=== PATIENT | female | born 1950 | race Caucasian/White ===

== ENCOUNTER → 2017-03-05 | Outpatient (CLI) | payer MEDICARE ==
[~2017-03-05] MED LIST: CATHETER FLUSH 10 ML SYR IV PRN; CETI10CA PO; DULO30CA3 PO; GABA800T2 PO; MECL-124 PO; MELA10CA PO; NF-ESOM40C PO; PRAS10TA6 PO; REGADENOSON 0.4 MG/5 ML SYR (LEXISCAN) IV ONE; SIMV40TA4 PO; ZOLP10TA PO
[2017-03-05 09:10] VITALS: BP 135/86
--- NOTE | 2017-03-07 14:30 | STRESS TEST ---
DATE OF SERVICE: 03/05/2017 RESTING AND POST REGADENOSON TECHNETIUM 99M TETROFOSMIN SPECT CT IMAGING ORDERING PHYSICIAN: Dr. Meade. PRIMARY PHYSICIAN: Dr. Mendez. CLINICAL DIAGNOSIS: Coronary artery disease. Baseline images were carried out after injection of 10.98 mCi technetium-99m Tetrofosmin. This was followed by 0.4 mg regadenoson and 29.5 mCi technetium-99m Tetrofosmin for stress imaging. The electrocardiogram showed sinus rhythm at baseline and it did not change significantly with the regadenoson infusion. The patient tolerated the procedure well. Review of images at rest and following stress does not indicate any significant perfusion defects consistent with significant myocardial ischemia or infarction. Gated images show normal global left ventricular systolic function with normal regional wall motion. Left ventricular ejection fraction is calculated to be 86%. Left ventricular end diastolic volume of 13 mL. TID is absent (0.87). CONCLUSIONS: 1. No evidence of any significant myocardial ischemia or infarction on this study. 2. Hyperdynamic left ventricular systolic function with an ejection fraction of 86%. 3. No regional wall motion abnormalities seen on this study. Job ID: [id number] DocumentID: [id number] Dictated Date: 03/07/2017 11:50:46 [employer] Date: 03/07/2017 12:36:42 Dictated By: NATALIA MEADE MD, MA, FACP, FACC,
== END ==
LOC: CARD 06:55
PROVIDERS: ATTEND Internal Medicine Cardiovascular Disease
DX: I25.10 Atherosclerotic heart disease of native coronary artery without angina pectoris (principal); J43.8 Other emphysema; I65.23 Occlusion and stenosis of bilateral carotid arteries; Z72.0 Tobacco use
CPT/HCPCS: 78452; 93017

== ENCOUNTER → 2017-08-26 | Outpatient (CLI) | payer MEDICARE, OTHER ==
[~2017-08-26] MED LIST changes: -CATHETER FLUSH 10 ML SYR IV PRN; -REGADENOSON 0.4 MG/5 ML SYR (LEXISCAN) IV ONE
== END ==
LOC: CARD 11:44
PROVIDERS: ATTEND Nurse Practitioner Family
DX: R00.2 Palpitations (principal)
CPT/HCPCS: 93225; 93226

== ENCOUNTER → 2019-11-12 | Outpatient (CLI) | payer OTHER, MEDICARE | LOC: LABNPT 13:18 | PROVIDERS: ATTEND Internal Medicine | DX: Z01.89 Encounter for other specified special examinations (principal) | CPT/HCPCS: 84145 ==

== ENCOUNTER 2021-12-18 05:42 | Outpatient (CLI) | payer MEDICARE, OTHER ==
[~2021-12-18] VITALS: Ht 152.4 cm; Wt 67.7 kg
[2021-12-19] MEDS ORDERED: TICA90TA PO (10:38)
[2021-12-19] MEDS ORDERED: ACHD5005 PO (10:38)
[2021-12-19] MEDS ORDERED: CETI10TA17 PO (12:28)
[2021-12-19] MEDS ORDERED: FAMO20TA3 PO (12:28)
[2021-12-19] MEDS ORDERED: MELA1TAB20 PO (12:28)
[2021-12-19] MEDS ORDERED: ALBU2.5V4 INH (12:28)
[2021-12-19] MEDS ORDERED: SIMV20TA26 PO (12:28)
== END 2021-12-19 12:34 | disposition home or self-care (01) ==
LOC: PREOP 05:42
PROVIDERS: ATTEND Specialist
DX: Z01.818 Encounter for other preprocedural examination (principal)

== ENCOUNTER 2021-12-22 06:11 | Day surgery (SDC) | payer MEDICARE, OTHER ==
[~2021-12-22] VITALS: Ht 152.4 cm; Wt 67.7 kg
[~2021-12-22 06:11] MED LIST changes: +ACHD5005 PO; +ALBU2.5V4 INH; +CETI10TA17 PO; +FAMO20TA3 PO; +MELA1TAB20 PO; +SIMV20TA26 PO; +TICA90TA PO
[2021-12-22] MEDS: TETRACAINE 0.5% OPHTH SOLN 4 ML BTL (SINGLE DOSE ONLY) OU PRN ×4 (06:29→06:47)
[2021-12-22] MEDS ORDERED: MOXIFLOXACIN OPHTH SOLN 5 MG/ML 0.3 ML SYRINGE OP ONE (06:30)
[2021-12-22] MEDS ORDERED: POVIDONE (BETADINE) OPHTH SOLN 5% 30 ML OP ONE (06:30)
[2021-12-22] MEDS ORDERED: TIMOLOL MALEATE 0.5% 5 ML (TIMOPTIC) BTL OU PRN (06:30)
[2021-12-22] MEDS: PHENYLEPHRINE 10% OPHTH (NEO-SYN) 5 ML BTL OU SCH ×3 (06:37→06:47)
[2021-12-22] MEDS: TROPICAMIDE 1% OPH SOLN (MYDRIACYL) 15 ML BTL OP SCH ×3 (06:37→06:47)
[2021-12-22 06:44] VITALS: BP 147/98
[2021-12-22] MEDS ORDERED: MIDAZOLAM 2 MG/2 ML (VERSED) VIAL ONE (07:21)
--- NOTE | 2021-12-22 07:33 | Ophthalmologist Pre-Op Note ---
Pre-Operative Progress Note H&P Reviewed The H&P was reviewed, patient examined and no changes noted. Date H&P Reviewed: Dec 22, 2021 Time H&P Reviewed: 07:32 Pre-Op Dx Cataract, Left Eye MURPHY SUAREZ MD Dec 22, 2021 07:32
--- NOTE | 2021-12-22 07:54 | Ophthalmology Operative Report ---
Cataract removal/placement IOL PREOPERATIVE DIAGNOSIS: Cataract Left Eye POSTOPERATIVE DIAGNOSIS: Cataract Left Eye PROCEDURE: Cataract removal and placement of posterior chamber implant, left eye SURGEON: Delano Suarez ANESTHESIA: Topical with sedation COMPLICATIONS: None ESTIMATED BLOOD LOSS: Minimal DESCRIPTION OF PROCEDURE: After proper informed consent was obtained, the patient, a 71 female, was taken to the Operating Room and the left eye was anesthetized with tetracaine. The left eye was then prepped and draped in the usual manner. A wire lid speculum was placed. A paracentesis was made at the left hand position. Preservative free lidocaine was injected into the anterior chamber followed by viscoelastic. A clear corneal incision was made in the temporal position. A capsulorrhexis was preformed and the central nuclear and cortical material were removed. The posterior capsule was polished and an Froilan 22.0 AU00T0 was placed into the capsular bag. The residual viscoelastic was aspirated and balanced saline solution was injected into the anterior chamber. Moxifloxacin was injected into the anterior chamber. The wound was checked and found to be water tight. The patient tolerated the procedure well without complications. DELANO SUAREZ MD Dec 22, 2021 07:54
[2021-12-22 08:03] VITALS: BP 147/98
--- NOTE | 2021-12-22 17:27 | Anesthesia-General Post-Op ---
MAC Patient Condition Mental Status/LOC: Same as Preop Cardiovascular: Satisfactory Nausea/Vomiting: Absent Respiratory: Satisfactory Pain: Controlled Complications: Absent Post Op Complications Complications None Follow Up Care/Instructions Patient Instructions None needed. Anesthesiology Discharge Order Discharge Order Patient is doing well, no complaints, stable vital signs, no apparent adverse anesthesia problems. No complications reported per nursing. SHEILA OAKES CRNA Dec 22, 2021 17:27
== END 2021-12-22 08:05 | disposition home or self-care (01) ==
LOC: SDC 06:11
PROVIDERS: ATTEND Specialist
DX: H25.9 Unspecified age-related cataract (principal); Z87.891 Personal history of nicotine dependence; Z88.0 Allergy status to penicillin; Z88.2 Allergy status to sulfonamides; Z95.5 Presence of coronary angioplasty implant and graft
CPT/HCPCS: 66984; V2632

== ENCOUNTER 2022-01-02 05:40 | Outpatient (CLI) | payer MEDICARE, OTHER | END 2022-01-02 13:14 | LOC: PREOP 05:40 | PROVIDERS: ATTEND Specialist | DX: Z01.818 Encounter for other preprocedural examination (principal); H26.9 Unspecified cataract ==

== ENCOUNTER 2022-01-05 10:10 | Day surgery (SDC) | payer MEDICARE, OTHER ==
[~2022-01-05] VITALS: Ht 152.4 cm; Wt 67.7 kg
[2022-01-05] MEDS: TETRACAINE 0.5% OPHTH SOLN 4 ML BTL (SINGLE DOSE ONLY) OU PRN ×4 (10:14→10:34)
[2022-01-05] MEDS ORDERED: MOXIFLOXACIN OPHTH SOLN 5 MG/ML 0.3 ML SYRINGE OP ONE (10:15)
[2022-01-05] MEDS ORDERED: POVIDONE (BETADINE) OPHTH SOLN 5% 30 ML OP ONE (10:15)
[2022-01-05] MEDS ORDERED: TIMOLOL MALEATE 0.5% 5 ML (TIMOPTIC) BTL OU PRN (10:15)
[2022-01-05 10:18] VITALS: BP 135/58
[2022-01-05] MEDS: TROPICAMIDE 1% OPH SOLN (MYDRIACYL) 15 ML BTL OP SCH ×3 (10:20→10:34)
[2022-01-05] MEDS: PHENYLEPHRINE 10% OPHTH (NEO-SYN) 5 ML BTL OU SCH ×3 (10:20→10:34)
[2022-01-05] MEDS ORDERED: MIDAZOLAM 2 MG/2 ML (VERSED) VIAL ONE (10:26)
--- NOTE | 2022-01-05 11:15 | Ophthalmologist Pre-Op Note ---
Pre-Operative Progress Note H&P Reviewed The H&P was reviewed, patient examined and no changes noted. Date H&P Reviewed: Jan 05, 2022 Time H&P Reviewed: 11:15 Pre-Op Dx Cataract, Right Eye MURPHY SUAREZ MD Jan 05, 2022 11:15
--- NOTE | 2022-01-05 11:36 | Ophthalmology Operative Report ---
Cataract removal/placement IOL PREOPERATIVE DIAGNOSIS: Cataract Right Eye POSTOPERATIVE DIAGNOSIS: Cataract Right Eye PROCEDURE: Cataract removal and placement of posterior chamber implant, right eye SURGEON: Delano Suarez ANESTHESIA: Topical with sedation COMPLICATIONS: None ESTIMATED BLOOD LOSS: Minimal DESCRIPTION OF PROCEDURE: After proper informed consent was obtained, the patient, a 71 female, was taken to the Operating Room and the right eye was anesthetized with tetracaine. The right eye was then prepped and draped in the usual manner. A wire lid speculum was placed. A paracentesis was made at the left hand position. Preservative free lidocaine was injected into the anterior chamber followed by viscoelastic. A clear corneal incision was made in the temporal position. A capsulorrhexis was preformed and the central nuclear and cortical material were removed. The posterior capsule was polished and Froilan 22.5 AU00T0 IOL was placed into the capsular bag. The residual viscoelastic was aspirated and balanced saline solution was injected into the anterior chamber. Moxifloxacin was injected into the anterior chamber. The wound was checked and found to be water tight. The patient tolerated the procedure well without complications. DELANO SUAREZ MD Jan 05, 2022 11:36
[2022-01-05 11:41] VITALS: BP 135/58
--- NOTE | 2022-01-05 14:51 | Anesthesia-General Post-Op ---
MAC Patient Condition Mental Status/LOC: Same as Preop Cardiovascular: Satisfactory Nausea/Vomiting: Absent Respiratory: Satisfactory Pain: Controlled Complications: Absent Post Op Complications Complications None Follow Up Care/Instructions Patient Instructions None needed. Anesthesiology Discharge Order Discharge Order Patient is doing well, no complaints, stable vital signs, no apparent adverse anesthesia problems. No complications reported per nursing. GILBERTO DONATO CRNA Jan 05, 2022 14:51
== END 2022-01-05 11:47 | disposition home or self-care (01) ==
LOC: SDC 10:10
PROVIDERS: ATTEND Specialist
DX: H26.9 Unspecified cataract (principal); Z87.891 Personal history of nicotine dependence
CPT/HCPCS: 66984; V2632